=== PATIENT | female | born 1965 | race Caucasian/White ===

== ENCOUNTER 2017-03-27 22:02 | Emergency (ER) | payer BC, OTHER ==
[~2017-03-27] VITALS: Ht 165.1 cm; Wt 72.6 kg
[~2017-03-27 22:02] MED LIST: BUPR75TA3 PO; LAMO25TA5 PO
[2017-03-27] MEDS ORDERED: PREMPRO (22:22)
[2017-03-27] MEDS ORDERED: BUPROPION HCL XL 300 MG TABLET (22:22)
--- NOTE | 2017-03-27 22:22 | NUR ---
PATIENT WALKED INTO ER WITH C/O INFECTION ON HER LEFT LEG. C/O PAIN 02/21 PATIENT STATES HAS HAD STAPH INFECTIONS I THE LAST FEW MONTHS.
[2017-03-27] MEDS ORDERED: CEFTRIAXONE 1 G VIAL IM ONE (22:30)
--- NOTE | 2017-03-27 22:36 | NUR ---
Patient discharged to home in stable conditon. Written and verbal after care instructions given. Patient verbalizes understanding of instructions. PATIENT LEFT WITH STABLE GAIT.
[2017-03-27 22:37] VITALS: BP 110/70
[2017-03-27] MEDS ORDERED: LIDOCAINE HCL 1% 20 ML VIAL ONE (22:41)
[2017-03-27] MEDS ORDERED: CEFTRIAXONE 1 G VIAL ONE (22:41)
== END 2017-03-27 22:37 | disposition home or self-care (01) ==
LOC: ER 22:05
DX: B95.8 Unspecified staphylococcus as the cause of diseases classified elsewhere (principal); L08.9 Local infection of the skin and subcutaneous tissue, unspecified; F17.200 Nicotine dependence, unspecified, uncomplicated
CPT/HCPCS: A4663; J0696; J3490

== ENCOUNTER 2021-03-21 19:11 | Emergency (ER) | payer OTHER ==
[~2021-03-21] VITALS: Ht 165.1 cm; Wt 89.4 kg
[~2021-03-21 19:11] MED LIST changes: -BUPR75TA3 PO; +BUPROPION HCL XL 300 MG TABLET; +PREMPRO
[2021-03-21] MEDS ORDERED: ONDANSETRON HCL 4 MG TABLET PO ONE (20:00)
[2021-03-21] MEDS ORDERED: HYDROMORPHONE 1 MG/1 ML DISP.SYRIN IM ONE (20:00)
[2021-03-21] MEDS ORDERED: KETOROLAC TROMETHAMINE 60 MG INJ IM ONE ×2 (20:00→20:13)
[2021-03-21] MEDS ORDERED: ONDANSETRON HCL 4 MG TABLET ONE (20:14)
[2021-03-21] MEDS ORDERED: HYDROMORPHONE 1 MG/1 ML DISP.SYRIN ONE (20:21)
[2021-03-21] MEDS ORDERED: OXYC-128 PO (20:34)
[2021-03-21] MEDS ORDERED: ONDA4TAB5 PO (20:34)
[2021-03-21 21:01] VITALS: BP 122/80
--- NOTE | 2021-03-21 21:02 | NUR ---
Patient discharged to home in stable condition. Written and verbal after care instructions given. Patient verbalizes understanding of instructions. Stressed follow up or return to ER for worsening s/s. VSS. Steady gait. Instructed not to drive - stated she is not driving. All belongings with patient.
== END 2021-03-21 20:40 | disposition home or self-care (01) ==
LOC: ER 19:13
DX: M51.16 Intervertebral disc disorders with radiculopathy, lumbar region (principal); M43.17 Spondylolisthesis, lumbosacral region; F17.210 Nicotine dependence, cigarettes, uncomplicated; F10.20 Alcohol dependence, uncomplicated; Z86.19 Personal history of other infectious and parasitic diseases; R03.0 Elevated blood-pressure reading, without diagnosis of hypertension
CPT/HCPCS: A4663; J1170; J1885; Q0162

== ENCOUNTER 2021-09-01 16:42 | Emergency (ER) | payer OTHER ==
[~2021-09-01] VITALS: Ht 165.1 cm; Wt 89.4 kg
[~2021-09-01 16:42] MED LIST changes: +ONDA4TAB5 PO; +OXYC-128 PO
[2021-09-01] MEDS ORDERED: HYDROCODONE/APAP 5-325MG TABLET PO ONE (17:45)
[2021-09-01] MEDS ORDERED: KETOROLAC TROMETHAMINE 15 MG INJ IM ONE (17:45)
--- NOTE | 2021-09-01 18:00 | NUR ---
PT MEDICATED FOR PAIN PER MD ORDER. TOLERATED IM SHOT WELL.
[2021-09-01] MEDS ORDERED: KETOROLAC TROMETHAMINE 15 MG INJ ONE (18:01)
[2021-09-01] MEDS ORDERED: HYDROCODONE/APAP 5-325MG TABLET ONE (18:02)
[2021-09-01] MEDS ORDERED: HYDR-3974 PO ×2 (18:12→18:20)
[2021-09-01] MEDS ORDERED: CYCL5TAB PO ×2 (18:12→18:20)
[2021-09-01] MEDS ORDERED: METH4TAB3 PO ×2 (18:12→18:20)
[2021-09-01] MEDS ORDERED: IBUP-1955 PO ×2 (18:12→18:20)
--- NOTE | 2021-09-01 18:28 | NUR ---
PT VERBALIZED FEELING BETTER AFTER TORADOL IM. DISCHARGE INSTRUCTIONS GIVEN PER MD ORDERS. DISCHARGED IN STABLE CONDITION.
[2021-09-01 18:30] VITALS: BP 132/84
== END 2021-09-01 18:31 | disposition home or self-care (01) ==
LOC: ER 16:44
DX: M51.17 Intervertebral disc disorders with radiculopathy, lumbosacral region (principal); F10.20 Alcohol dependence, uncomplicated; Z86.19 Personal history of other infectious and parasitic diseases; F17.210 Nicotine dependence, cigarettes, uncomplicated; R03.0 Elevated blood-pressure reading, without diagnosis of hypertension
CPT/HCPCS: 96372; 99283; J1885; A4663

== ENCOUNTER 2021-10-03 22:31 | Emergency (ER) | payer OTHER ==
[~2021-10-03] VITALS: Ht 165.1 cm; Wt 88.9 kg
[~2021-10-03 22:31] MED LIST changes: +CYCL5TAB PO; +HYDR-3974 PO; +IBUP-1955 PO; +METH4TAB3 PO
--- NOTE | 2021-10-03 22:55 | NUR ---
Pt placed in room ED1B by [employer] control assistant Ever CHAPMAN via waiting room for mod to severe back pain s/p very bad TC one year ago, states that she has been dealing with chronic, severe pain ever since. pt is otherwise healthy with no major med issues. VSS, PE WNL, gait steady, good color and appearance, aaox4, completely lucid. no s/sx of distress present.
--- NOTE | 2021-10-03 23:00 | NUR ---
EDMD at bedside to eval pt condition.
[2021-10-03] MEDS ORDERED: HYDROMORPHONE 1 MG/1 ML DISP.SYRIN IM ONE (23:45)
[2021-10-03] MEDS ORDERED: ONDANSETRON ODT 4 MG TAB.RAPDIS SL ONE (23:45)
[2021-10-03] MEDS ORDERED: ONDA4TAB5 PO (23:47)
[2021-10-03] MEDS ORDERED: OXYC-128 PO (23:47)
[2021-10-04] MEDS ORDERED: HYDROMORPHONE 1 MG/1 ML DISP.SYRIN ONE (00:03)
[2021-10-04] MEDS ORDERED: ONDANSETRON ODT 4 MG TAB.RAPDIS ONE (00:04)
--- NOTE | 2021-10-04 00:25 | NUR ---
Pt given dc instructions, observed for reaction, no reaction detected, pt states she feels much better and that she can actually sleep to night. VSS, PE WNL, no complaints of sob, dizziness, n/v, or discomfort. Pt signed out and dced home.
--- NOTE | 2021-10-04 00:48 | NUR ---
EDMD ordered pain med plus anti-emetic, meds administered immediately, and DC paperwork printed up, per EDMD pt is good to go as soon as she is safely medicated.
[2021-10-04 00:58] VITALS: BP 135/75
== END 2021-10-04 00:25 | disposition home or self-care (01) ==
LOC: ER 22:33
DX: M54.42 Lumbago with sciatica, left side (principal); M54.41 Lumbago with sciatica, right side; F17.210 Nicotine dependence, cigarettes, uncomplicated; Z90.49 Acquired absence of other specified parts of digestive tract; Z86.19 Personal history of other infectious and parasitic diseases; Z86.16 Personal history of COVID-19
CPT/HCPCS: 96372; 99283; J1170; A4663; Q0162

== ENCOUNTER 2022-01-24 21:47 | Emergency (ER) | payer OTHER ==
[~2022-01-24] VITALS: Ht 165.1 cm; Wt 86.2 kg
[2022-01-24] MEDS ORDERED: ONDANSETRON HCL 4 MG TABLET PO ONE (22:15)
[2022-01-24] MEDS ORDERED: KETOROLAC TROMETHAMINE 60 MG INJ IM ONE ×2 (22:15→22:17)
[2022-01-24] MEDS ORDERED: HYDROMORPHONE 1 MG/1 ML DISP.SYRIN IM ONE (22:15)
[2022-01-24] MEDS ORDERED: ONDANSETRON HCL 4 MG TABLET ONE (22:17)
[2022-01-24] MEDS ORDERED: HYDROMORPHONE 1 MG/1 ML DISP.SYRIN ONE (22:18)
[2022-01-25] MEDS ORDERED: HYDR-3980 PO (00:07)
--- NOTE | 2022-01-25 00:14 | NUR ---
Patient discharged to home in stable condition. Written and verbal after care instructions given. Patient verbalizes understanding of instructions. Stressed follow up or return to ER for worsening s/s. pt ambulated with steady gait with cane. denies pain. no SOB. no chest pain. AOx4
[2022-01-25 00:15] VITALS: BP 128/96
== END 2022-01-25 00:16 | disposition home or self-care (01) ==
LOC: ER 21:50
DX: M54.50 Low back pain, unspecified (principal); F17.210 Nicotine dependence, cigarettes, uncomplicated; Z86.19 Personal history of other infectious and parasitic diseases; Z90.49 Acquired absence of other specified parts of digestive tract; R03.0 Elevated blood-pressure reading, without diagnosis of hypertension; Z98.890 Other specified postprocedural states
CPT/HCPCS: 72131; 96372 ×2; 99284; J1170; J1885; A4663; Q0162

== ENCOUNTER 2022-02-21 21:55 | Emergency (ER) | payer OTHER ==
[~2022-02-21] VITALS: Ht 165.1 cm; Wt 86.2 kg
[~2022-02-21 21:55] MED LIST changes: +HYDR-3980 PO
--- NOTE | 2022-02-21 22:30 | NUR ---
Dr Cruz into eval patient.
[2022-02-21] MEDS ORDERED: HYDR-3980 PO (22:41)
[2022-02-21] MEDS ORDERED: CYCL10TA9 PO (22:41)
[2022-02-21] MEDS ORDERED: HYDROCODONE/APAP 10-325 MG TABLET PO ONE (22:45)
[2022-02-21] MEDS ORDERED: CYCLOBENZAPRINE HCL 10 MG TABLET PO ONE (22:45)
[2022-02-21] MEDS ORDERED: KETOROLAC TROMETHAMINE 30 MG INJ IM ONE (22:45)
[2022-02-21] MEDS ORDERED: KETOROLAC TROMETHAMINE 30 MG INJ ONE (22:51)
[2022-02-21] MEDS ORDERED: HYDROCODONE/APAP 10-325 MG TABLET ONE (22:52)
[2022-02-21] MEDS ORDERED: CYCLOBENZAPRINE HCL 10 MG TABLET ONE (22:52)
[2022-02-21 23:04] VITALS: BP 135/78
--- NOTE | 2022-02-21 23:04 | NUR ---
Patient discharged to home in stable condition. Written and verbal after care instructions given. Patient verbalizes understanding of instructions. Stressed follow up or return to ER for worsening s/s.
== END 2022-02-21 23:04 | disposition home or self-care (01) ==
LOC: ER 22:01
DX: G89.29 Other chronic pain (principal); M54.50 Low back pain, unspecified; F17.210 Nicotine dependence, cigarettes, uncomplicated; Z86.19 Personal history of other infectious and parasitic diseases; Z90.49 Acquired absence of other specified parts of digestive tract; F10.21 Alcohol dependence, in remission
CPT/HCPCS: 96372; 99283; 99406; J1885; A4663

== ENCOUNTER 2022-09-12 19:28 | Emergency (ER) | payer OTHER ==
[~2022-09-12] VITALS: Ht 165.1 cm; Wt 89.4 kg
[~2022-09-12 19:28] MED LIST changes: +CYCL10TA9 PO
--- NOTE | 2022-09-12 20:40 | NUR ---
Dr. Reeves at bedside for MSE.
[2022-09-12] MEDS ORDERED: LIDOCAINE 5% PATCH TD ONE ×2 (20:46→21:45)
[2022-09-12] MEDS ORDERED: CYCLOBENZAPRINE HCL 10 MG TABLET ONE (20:46)
[2022-09-12] MEDS ORDERED: HYDROCODONE/APAP 5-325MG TABLET ONE (20:47)
[2022-09-12] MEDS: HYDROCODONE/APAP 5-325MG TABLET PO ONE (20:51)
[2022-09-12] MEDS: CYCLOBENZAPRINE HCL 10 MG TABLET PO ONE (20:51)
[2022-09-12] MEDS: LIDOCAINE 5% PATCH TD ONE (20:51)
--- NOTE | 2022-09-12 22:19 | NUR ---
Patient eloped from facility. ER physician notified.
== END 2022-09-12 22:45 | disposition left against medical advice (07) ==
LOC: ER 19:48
DX: M54.50 Low back pain, unspecified (principal); Z53.29 Procedure and treatment not carried out because of patient's decision for other reasons; Z98.1 Arthrodesis status; Z72.0 Tobacco use; Z90.49 Acquired absence of other specified parts of digestive tract; Z86.19 Personal history of other infectious and parasitic diseases; E78.5 Hyperlipidemia, unspecified; G89.29 Other chronic pain
CPT/HCPCS: 72131; A4663

== ENCOUNTER 2025-01-24 19:24 | Emergency (ER) | payer OTHER ==
[~2025-01-24] VITALS: Ht 162.6 cm; Wt 79.4 kg
[2025-01-24] MEDS ORDERED: HYDR2TAB7 PO (20:12)
[2025-01-24] MEDS ORDERED: ONDA4TAB11 PO (20:12)
[2025-01-24] MEDS: CYCLOBENZAPRINE HCL 10 MG TABLET PO ONE (20:15)
[2025-01-24] MEDS: ONDANSETRON ODT 4 MG TAB.RAPDIS SL ONE (20:15)
[2025-01-24] MEDS ORDERED: HYDROMORPHONE HCL 2 MG TABLET ONE (20:39)
[2025-01-24] MEDS ORDERED: CYCLOBENZAPRINE HCL 10 MG TABLET ONE (20:40)
[2025-01-24] MEDS ORDERED: ONDANSETRON HCL 4 MG TABLET ONE (20:40)
[2025-01-24] MEDS: HYDROMORPHONE HCL 2 MG TABLET PO ONE (20:45)
[2025-01-24] MEDS ORDERED: KETOROLAC TROMETHAMINE 30 MG INJ ONE (20:46)
[2025-01-24] MEDS: KETOROLAC TROMETHAMINE 30 MG INJ IM ONE (21:23)
[2025-01-24 21:24] VITALS: BP 123/84; TEMP 98; O2SAT 95
== END 2025-01-24 21:24 | disposition home or self-care (01) ==
LOC: ER 19:25
DX: M54.42 Lumbago with sciatica, left side (principal); M54.41 Lumbago with sciatica, right side; G89.29 Other chronic pain; F17.210 Nicotine dependence, cigarettes, uncomplicated; Z79.899 Other long term (current) drug therapy; Z86.19 Personal history of other infectious and parasitic diseases; Z88.7 Allergy status to serum and vaccine; Z90.49 Acquired absence of other specified parts of digestive tract; Z60.2 Problems related to living alone
CPT/HCPCS: 99284; 99406; 96372; J1885; A4606; A4663; Q0162